=== PATIENT | male | born 2000 | race Two or more races ===

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

== ENCOUNTER → 2019-10-26 | Emergency (ER) | payer SELFPAY ==
[~2019-10-26] VITALS: Ht 167.6 cm; Wt 86.2 kg
[~2019-10-26] MED LIST: MIDAZOLAM HCL 5 MG/ML-1ML VIAL IV ONE; MIDAZOLAM HCL 5 MG/ML-1ML VIAL ONE; fentaNYL CITRATE 100 MCG/2 ML VL IV ONE; fentaNYL CITRATE 100 MCG/2 ML VL ONE
[2019-10-26 17:00] VITALS: BP 133/84
== END | disposition home or self-care (01) ==
LOC: ER 09:02
DX: S42.292A Other displaced fracture of upper end of left humerus, initial encounter for closed fracture (principal); M24.412 Recurrent dislocation, left shoulder; W19.XXXA Unspecified fall, initial encounter; Y93.89 Activity, other specified; Y92.89 Other specified places as the place of occurrence of the external cause; Y99.8 Other external cause status
CPT/HCPCS: 23650; 73020; 73030; 96374; 96375; 99285; J2250; J3010

== ENCOUNTER 2020-04-07 23:48 | Emergency (ER) | payer SELFPAY ==
[~2020-04-07] VITALS: Ht 177.8 cm; Wt 77.1 kg
[2020-04-08] MEDS ORDERED: HYDROmorphone HCL 2 MG/ML VL IV ONE (09:00)
[2020-04-08] MEDS ORDERED: ONDANSETRON HCL 4 MG/2 ML VIAL IV ONE (09:00)
[2020-04-08 09:50] VITALS: BP 127/85
== END 2020-04-08 10:13 | disposition home or self-care (01) ==
LOC: EDBD 23:48 → ER 23:51
DX: S43.005A Unspecified dislocation of left shoulder joint, initial encounter (principal); X58.XXXA Exposure to other specified factors, initial encounter; Y93.89 Activity, other specified; Y92.89 Other specified places as the place of occurrence of the external cause; Y99.8 Other external cause status
CPT/HCPCS: 73020; 73060; 96374; 96375; 99284; J1170; J2405

== ENCOUNTER 2020-12-30 22:48 | Emergency (ER) | payer SELFPAY ==
[~2020-12-30] VITALS: Ht 167.6 cm; Wt 90.7 kg
[2020-12-30] MEDS ORDERED: PROPOFOL 10 MG/ML 20 ML IV ONE (23:45)
[2020-12-31] MEDS ORDERED: PROPOFOL 100 ML IV ONE (00:47)
[2020-12-31 04:00] VITALS: BP 123/78
== END 2020-12-31 04:08 | disposition home or self-care (01) ==
LOC: ER 22:48
DX: S43.005A Unspecified dislocation of left shoulder joint, initial encounter (principal); S42.292A Other displaced fracture of upper end of left humerus, initial encounter for closed fracture; F12.10 Cannabis abuse, uncomplicated; W19.XXXA Unspecified fall, initial encounter; Y93.9 Activity, unspecified; Y92.89 Other specified places as the place of occurrence of the external cause; Y99.8 Other external cause status
CPT/HCPCS: 23650; 73020; 73030; 99152; 99285; J2704; J7030